=== PATIENT | female | born 1985 | race Asian ===

== ENCOUNTER 2018-04-14 15:26 | Emergency (ER) | payer OTHER ==
[~2018-04-14] VITALS: Ht 175.3 cm; Wt 113.4 kg
[2018-04-14 15:50] VITALS: BP 115/63
[2018-04-14] MEDS ORDERED: LIDOCAINE 1% HCL (LOCAL ANESTH.) INJ 20ML MDV ONE (16:23)
[2018-04-14] MEDS ORDERED: LIDOCAINE 1% HCL (LOCAL ANESTH.) INJ 20ML MDV IJ ONE (16:30)
[2018-04-14] MEDS ORDERED: TETANUS-DIPTH-ACEL PERTUSSIS 0.5ML SYRG IM ONE (16:45)
[2018-04-14] MEDS ORDERED: cefTRIAXone SOD 1,000 MG VL IM ONE (16:45)
== END 2018-04-14 17:12 | disposition home or self-care (01) ==
LOC: ER 15:28
DX: S61.411A Laceration without foreign body of right hand, initial encounter (principal); S62.354A Nondisplaced fracture of shaft of fourth metacarpal bone, right hand, initial encounter for closed fracture; F17.210 Nicotine dependence, cigarettes, uncomplicated; W18.39XA Other fall on same level, initial encounter; Y93.61 Activity, american tackle football; Y99.8 Other external cause status; Y92.39 Other specified sports and athletic area as the place of occurrence of the external cause
CPT/HCPCS: 12002; 73130; 90471; 90715; 96372; 99283; J0696; J2001

== ENCOUNTER 2018-09-02 23:37 | Emergency (ER) | payer OTHER ==
[~2018-09-02] VITALS: Ht 175.3 cm; Wt 113.4 kg
[2018-09-03 01:22] VITALS: BP 114/49
[2018-09-03] MEDS ORDERED: ACETAMINOPHEN 500 MG TAB PO ONE (01:45)
[2018-09-03] MEDS ORDERED: IBUPROFEN 800 MG TAB PO ONE (01:45)
== END 2018-09-03 03:22 | disposition home or self-care (01) ==
LOC: ER 23:37
DX: S22.088D Other fracture of T11-T12 vertebra, subsequent encounter for fracture with routine healing (principal); S33.5XXA Sprain of ligaments of lumbar spine, initial encounter; M51.26 Other intervertebral disc displacement, lumbar region; F17.210 Nicotine dependence, cigarettes, uncomplicated; X50.0XXA Overexertion from strenuous movement or load, initial encounter; Y93.89 Activity, other specified; Y92.89 Other specified places as the place of occurrence of the external cause; Y99.8 Other external cause status
CPT/HCPCS: 72131